=== PATIENT | female | born 1990 | race Caucasian/White ===

== ENCOUNTER 2017-03-08 14:20 | Emergency (ER) | payer OTHER ==
[2017-03-08 14:26] VITALS: TEMP 97.9
--- NOTE | 2017-03-08 15:26 | EDPHY ---
Addendum entered and electronically signed by Fabiola Leal PAC 03/08/17 16:14 : Patient's images reviewed by myself and discussed with radiologist Original Note: H & P Stated Complaint: Hit L side of head w/small window AC unity this am;+LOC Time Seen by Provider: 03/08/17 15:11 HPI/ROS: CHIEF COMPLAINT: acute head injury from a conditioner HISTORY OF PRESENT ILLNESS: 26-year-old female history of multiple sclerosis, no anticoagulant use, arrives via private vehicle complaining of acute head injury after a window air conditioner unit fell impacting her on the left parietal region with positive loss of consciousness . Incident occurred shortly prior to arrival. Her partner knows that she is answering questions more slowly than usual. She is complaining of headache. She is complaining of nausea. She denies midline C-spine pain. Denies intoxicants use. Denies peripheral paresthesia, weakness, numbness. REVIEW OF SYSTEMS: A ten point review of systems was performed and is negative with the exception of the items mentioned in the HPI PAST MEDICAL/SURGICAL HISTORY: no anticoagulant use, multiple sclerosis history SOCIAL HISTORY: denies alcohol use at time of incident PHYSICAL EXAM 1) GENERAL: Well-developed, well-nourished, alert and oriented. Appears to be in no acute distress. Answering questions appropriately. 2) HEAD: Normocephalic, left parietal hematoma, tenderness noted on exam. 3) HEENT: Pupils equal, round, reactive to light bilaterally. Negative Horners. Nasopharynx, oropharynx, clear. No deformity or angulation of nose. No septal hematoma. No rhinorrhea. No oral trauma. Ears bilaterally with normal tympanic membranes. No hemotympanum. No fluid or blood in the external auditory canal. No raccoon eyes. No Wu sign. Teeth are normally aligned with no gross malocclusion, TMJ bilaterally nontender, facial bones nontender including the zygomatic arch, maxilla mandible. 4) NECK: No cervical collar is on. Posterior cervical spine is nontender, no stepoff, no effusion. Full range of motion which does not elicit any midline cervical spine pain, no posterior midline tenderness, no step-off. 5) LUNGS: Clear to auscultation bilaterally, no wheezes, no rhonchi, no retractions. No obvious signs of trauma. No chest wall pain. No flaring, no grunting. Moving symmetrically. No crepitus. 6) HEART: Regular rate and rhythm, 7) ABDOMEN: No guarding, no rebound, no focal tenderness, no peritoneal signs, no signs of trauma, no ecchymosis 8) MUSCULOSKELETAL: Moving all extremities, no focal areas of tenderness, no obvious trauma. 9) BACK: No midline vertebral tenderness, no fluctuance, no step-off, no obvious trauma, no visual or palpable abnormality. 10) SKIN: [ No laceration. No abrasion DIFFERENTIAL DIAGNOSIS: [Not necessarily in any particular order, my differential diagnosis includes, but is not limited to, concussion, skull fracture, intraparenchymal contusion, subarachnoid, subdural and epidural hematoma. The patient understands that this diagnosis is provisional and can never be 100% accurate. - Personal History LMP (Females 10-55): Extended Cycle BCP/Inj Current Tetanus Diphtheria and Acellular Pertussis (TDAP): Yes Tetanus Vaccine Date: 2010 - Medical/Surgical History Hx Asthma: No Hx Chronic Respiratory Disease: No Hx Diabetes: No Hx Cardiac Disease: No Hx Renal Disease: No Hx Cirrhosis: No Hx Alcoholism: No Hx HIV/AIDS: No Hx Splenectomy or Spleen Trauma: No Other PMH: HX: BREAST CA, MENINGITIS, ANXIETY, L SHOULDER SURGERY, BRACHIAL BYPASS SURGERY LEFT ARM, LEFT ARM FX AND SURGERY, MS, TBI - Social History Smoking Status: Former smoker Constitutional: Initial Vital Signs Temperature (C) 36.6 C 03/08/17 14:20 Heart Rate 66 03/08/17 14:20 Respiratory Rate 18 03/08/17 14:20 Blood Pressure 135/89 H 03/08/17 14:20 O2 Sat (%) 98 03/08/17 14:20 Allergies/Adverse Reactions: codeine Allergy (Severe, Verified 03/08/17 14:22) Hives hydrocodone Allergy (Severe, Verified 03/08/17 14:22) Hives Sulfa (Sulfonamide Antibiotics) Allergy (Severe, Verified 03/08/17 14:22) Anaphylaxis vancomycin Allergy (Severe, Verified 03/08/17 14:22) Anaphylaxis Home Medications: Medication Instructions Recorded Gabapentin [Neurontin 300 MG (*)] 300 mg PO TID #90 cap 07/14/15 Medical Decision Making ED Course/Re-evaluation: 3:[address] ordered in this patient for trauma for the following indication: severe headache, loss of consciousness and visible head trauma, loss of consciousness and headache. 4:12 p.m. I discussed with the patient her negative CT. She is answering questions appropriately. No memory loss. Nonfocal neurologic exam. Plan will be discharge home with usual and customary head injury precautions and instructions including 2nd impact syndrome. Departure - Departure Disposition: Home, Routine, Self-Care Clinical Impression: Head injury due to trauma Qualifiers: Encounter type: initial encounter Qualified Code(s): S09.90XA - Unspecified injury of head, initial encounter Condition: Good Instructions: Head Injury (ED) Additional Instructions: ALTHOUGH THERE IS NO EVIDENCE OF SERIOUS HEAD INJURY AT THIS TIME, DELAYED SIGNS CAN APPEAR 24 TO 48 HOURS AFTER INJURY. WE RECOMMEND THAT YOU DESIGNATE A FRIEND OR FAMILY MEMBER TO OBSERVE YOU OVER THE NEXT FEW DAYS TO ENSURE THAT YOUR CONDITION IS PROGRESSING NORMALLY. PLEASE RETURN TO THE EMERGENCY DEPARTMENT (ED) IMMEDIATELY IF YOU HAVE INCREASED HEADACHE, PERSISTENT HEADACHE , VOMITING, WEAKNESS, CONFUSION OR VISUAL PROBLEMS. WE RECOMMEND THAT YOU DO NOT RESUME CONTACT SPORTS OR ACTIVITIES THAT TAKE COORDINATION OR BALANCE SUCH SKIING OR RIDING A BICYCLE UNTIL CLEARED TO DO SO BY YOUR DOCTOR OR BY A NEUROLOGIST. Referrals: Heather Reyes MD [Medical Doctor] - 2-3 days, call for appt.
[2017-03-08 16:24] VITALS: BP 114/68; PULSE 75; RESP 16; O2SAT 96
== END 2017-03-08 16:23 | disposition home or self-care (01) ==
DX: S09.90XA Unspecified injury of head, initial encounter (principal); Z85.3 Personal history of malignant neoplasm of breast; Z87.891 Personal history of nicotine dependence; W20.8XXA Other cause of strike by thrown, projected or falling object, initial encounter

== ENCOUNTER 2017-10-18 13:57 | Emergency (ER) | payer OTHER ==
[2017-10-18 14:09] VITALS: TEMP 98.2
[2017-10-18] MEDS ORDERED: NS 1,000 ML IV ONE (14:52)
[2017-10-18] MEDS ORDERED: ONDANSETRON 4 MG/2 ML VIAL IVP ONE ×3 (14:53→19:38)
--- NOTE | 2017-10-18 14:56 | EDPHY ---
H & P Stated Complaint: started 5 days ago, increasing malase and sob for 2 days, and MS Time Seen by Provider: 10/18/17 14:44 HPI/ROS: CHIEF COMPLAINT: Sore throat, fever, runny nose and body aches HISTORY OF PRESENT ILLNESS: Patient is a 27-year-old female with a history of MS as well as meningitis twice and is currently 7 weeks by ultrasound who comes to the emergency department complaining of sore throat, runny nose, fevers and body aches for 5 days. The she states that her partner was sick the week before she got sick. Today she has vomited twice. She has been nauseous and had morning sickness but feels worse today. she was concerned because of her history of meningitis. No rash. REVIEW OF SYSTEMS: Constitutional: See HPI EENTM: See HPI Respiratory: denies: cough, shortness of breath Cardiac: denies: chest pain, irregular heart rate, lightheadedness, palpitations Gastrointestinal/Abdominal: denies: abdominal pain, diarrhea, nausea, vomiting, blood streaked stools Genitourinary: denies: dysuria, frequency, hematuria, pain Musculoskeletal: See HPI Skin: denies: lesions, rash, jaundice, bruising Neurological: denies: headache, numbness, paresthesia, tingling, dizziness, weakness Hematologic/Lymphatic: denies: blood clots, easy bleeding, easy bruising Immunologic/allergic: denies: HIV/AIDS, transplant EXAM: GENERAL: Well-appearing, well-nourished and in no acute distress. HEAD: Atraumatic, normocephalic. EYES: Pupils equal round and reactive to light, extraocular movements intact, sclera anicteric, conjunctiva are normal. ENT: TMs normal, nares patent, oropharynx clear without exudates. Moist mucous membranes. NECK: Normal range of motion, supple without lymphadenopathy or JVD. LUNGS: Breath sounds clear to auscultation bilaterally and equal. No wheezes rales or rhonchi. HEART: Regular rate and rhythm without murmurs, rubs or gallops. ABDOMEN: Soft, nontender, normoactive bowel sounds. No guarding, no rebound. No masses appreciated. BACK: No CVA tenderness, no spinal tenderness, step-offs or deformities EXTREMITIES: Normal range of motion, no pitting or edema. No clubbing or cyanosis. NEUROLOGICAL: Cranial nerves II through XII grossly intact. Normal speech, normal gait. 5/5 strength, normal movement in all extremities, normal sensation PSYCH: Normal mood, normal affect. SKIN: Warm, dry, normal turgor, no visible rashes or lesions. Source: Patient Exam Limitations: No limitations - Personal History LMP (Females 10-55): Current Tetanus/Diphtheria Vaccine: Yes Current Tetanus Diphtheria and Acellular Pertussis (TDAP): Yes Tetanus Vaccine Date: 2010 - Medical/Surgical History Hx Asthma: No Hx Chronic Respiratory Disease: No Hx Diabetes: No Hx Cardiac Disease: No Hx Renal Disease: No Hx Cirrhosis: No Hx Alcoholism: No Hx HIV/AIDS: No Hx Splenectomy or Spleen Trauma: No Other PMH: HX: BREAST CA, MENINGITIS, ANXIETY, L SHOULDER SURGERY, BRACHIAL BYPASS SURGERY LEFT ARM, LEFT ARM FX AND SURGERY, MS, TBI - Family History Significant Family History: No pertinent family hx - Social History Smoking Status: Former smoker Alcohol Use: Sober Drug Use: None Constitutional: Initial Vital Signs Temperature (C) 36.8 C 10/18/17 14:06 Heart Rate 88 10/18/17 14:06 Respiratory Rate 16 10/18/17 14:06 Blood Pressure 100/83 H 10/18/17 14:06 O2 Sat (%) 98 10/18/17 14:06 O2 Delivery Mode Room Air Allergies/Adverse Reactions: codeine Allergy (Severe, Verified 03/08/17 14:22) Hives hydrocodone Allergy (Severe, Verified 03/08/17 14:22) Hives Sulfa (Sulfonamide Antibiotics) Allergy (Severe, Verified 03/08/17 14:22) Anaphylaxis vancomycin Allergy (Severe, Verified 03/08/17 14:22) Anaphylaxis Home Medications: Medication Instructions Recorded Gabapentin [Neurontin 300 MG (*)] 300 mg PO TID #90 cap 07/14/15 Ondansetron Odt [Zofran Odt 4 mg 4 mg PO Q4 PRN #20 tab 10/18/17 (RX)] Medical Decision Making - Diagnostics Imaging Results: Imaging Impressions Obstetrics Ultrasound 10/18/17 17:22 Impression: 1. Single living intrauterine gestation with EGA 8 weeks and 3 days. Estimated date of delivery is May 26, 2018. 2. Small subchorionic hemorrhage. 3. Recommend follow up anatomy scan at 20 weeks. Findings discussed with Emergency Department physician, Liborio Shukla on 2017, 19:16. Imaging: Discussed imaging studies w/ yardage caller Radiologist Procedures: Procedure: Lumbar puncture. Indication: Fever, back pain After verbal informed consent from patient explaining the risks including infection, bleeding, and neurologic damage, a lumbar puncture was performed after the patient was prepped and draped in the usual fashion. Procedures done with a Putnam blunt-tipped needle. The back was anesthetized with 1% lidocaine. Approximately 4 cc of clear fluid was obtained. Opening pressure was not obtained. There were no complications. The procedure was performed by myself. ED Course/Re-evaluation: Have returned to her room multiple times. The patient is feeling better. She tolerated the lumbar puncture well. She is reassured with the ultrasound although sounds as though she plans to have a medical . A suspect that she has a viral infection at this time and we discussed indications for returning as well as follow-up. The patient and her significant other feel happy with this plan. She is asking for prescription for Zofran. Differential Diagnosis: Partial list of the Differential diagnosis considered include but were not limited to; influenza, viral syndrome, meningitis, strep throat and although unlikely based on the history and physical exam, I also considered the uterine hemorrhage, urinary tract infection, sepsis, rupture. I discussed these differential diagnoses and the plan with the patient as well as the usual and expected course. The patient understands that the diagnosis is provisional and that in medicine we are not always correct and that further workup is often warranted. Usual and customary warnings were given. All of the patient's questions were answered. The patient was instructed to return to the emergency department should the symptoms at all worsen or return, otherwise to followup with the physician as we discussed. - Data Points Laboratory Results: Laboratory Results 10/18/17 15:10 10/18/17 15:10 10/18/17 10/18/17 10/18/17 Unknown 17:15 16:17 WBC RBC Hgb Hct MCV MCH MCHC RDW Plt Count MPV Neut % (Auto) Lymph % (Auto) Colbert % (Auto) Eos % (Auto) Baso % (Auto) Nucleat RBC Rel Count Absolute Neuts (auto) Absolute Lymphs (auto) Absolute Monos (auto) Absolute Eos (auto) Absolute Basos (auto) Absolute Nucleated RBC Immature Gran % Immature Gran # Sodium Potassium Chloride Carbon Dioxide Anion Gap BUN Creatinine Estimated GFR Glucose Calcium Urine Color Urine Appearance Urine pH Ur Specific [place] Urine Protein Urine Ketones Urine Blood Urine Nitrate Urine Bilirubin Urine Urobilinogen Ur Leukocyte Esterase Urine RBC Urine WBC Ur Epithelial Cells Urine Bacteria Urine Mucus Urine Glucose CSF Tube Number 4 CSF Appearance CLEAR (CLEAR) CSF Color COLORLESS (COLORLESS) CSF Supernatant COLORLESS (COLORLESS) CSF WBC 0 /mm3 /mm3 (0-5) CSF RBC 5 /mm3 H /mm3 (0-0) CSF Glucose 46 mg/dL L mg/dL (50-75) CSF Total Protein 27 mg/dL mg/dL (12-60) Nasal Influenza A PCR Nasal Influenza B PCR Group A Strep Screen NEGATIVE (NEGATIVE) Group A Strep DNA Pending 10/18/17 10/18/17 10/18/17 16:17 15:10 15:10 WBC 10.51 10^3/uL H 10^3/uL (3.80-9.50) RBC 4.42 10^6/uL 10^6/uL (4.18-5.33) Hgb 14.0 g/dL g/dL (12.6-16.3) Hct 40.1 % % (38.0-47.0) MCV 90.7 fL fL (81.5-99.8) MCH 31.7 pg pg (27.9-34.1) MCHC 34.9 g/dL g/dL (32.4-36.7) RDW 11.9 % % (11.5-15.2) Plt Count 303 10^3/uL 10^3/uL (150-400) MPV 9.3 fL fL (8.7-11.7) Neut % (Auto) 79.0 % H % (39.3-74.2) Lymph % (Auto) 11.8 % L % (15.0-45.0) Colbert % (Auto) 6.4 % % (4.5-13.0) Eos % (Auto) 2.1 % % (0.6-7.6) Baso % (Auto) 0.3 % % (0.3-1.7) Nucleat RBC Rel Count 0.0 % % (0.0-0.2) Absolute Neuts (auto) 8.31 10^3/uL H 10^3/uL (1.70-6.50) Absolute Lymphs (auto) 1.24 10^3/uL 10^3/uL (1.00-3.00) Absolute Monos (auto) 0.67 10^3/uL 10^3/uL (0.30-0.80) Absolute Eos (auto) 0.22 10^3/uL 10^3/uL (0.03-0.40) Absolute Basos (auto) 0.03 10^3/uL 10^3/uL (0.02-0.10) Absolute Nucleated RBC 0.00 10^3/uL 10^3/uL (0-0.01) Immature Gran % 0.4 % % (0.0-1.1) Immature Gran # 0.04 10^3/uL 10^3/uL (0.00-0.10) Sodium 136 mEq/L mEq/L (135-145) Potassium 4.1 mEq/L mEq/L (3.5-5.2) Chloride 108 mEq/L mEq/L (97-110) Carbon Dioxide 16 mEq/l L mEq/l (22-31) Anion Gap 12 mEq/L mEq/L (8-16) BUN 5 mg/dL L mg/dL (7-23) Creatinine 0.5 mg/dL L mg/dL (0.6-1.0) Estimated GFR > 60 Glucose 81 mg/dL mg/dL (70-100) Calcium 9.4 mg/dL mg/dL (8.5-10.4) Urine Color PALE YELLOW Urine Appearance CLEAR Urine pH 7.0 (5.0-7.5) Ur Specific [place] 1.004 (1.002-1.030) Urine Protein NEGATIVE (NEGATIVE) Urine Ketones NEGATIVE (NEGATIVE) Urine Blood NEGATIVE (NEGATIVE) Urine Nitrate NEGATIVE (NEGATIVE) Urine Bilirubin NEGATIVE (NEGATIVE) Urine Urobilinogen NEGATIVE EU EU (0.2-1.0) Ur Leukocyte Esterase NEGATIVE (NEGATIVE) Urine RBC 1-3 /hpf /hpf (0-3) Urine WBC 1-3 /hpf /hpf (0-3) Ur Epithelial Cells 1+ /lpf /lpf (NONE-1+) Urine Bacteria TRACE /hpf H /hpf (NONE SEEN) Urine Mucus TRACE /lpf /lpf (NONE-1+) Urine Glucose NEGATIVE (NEGATIVE) CSF Tube Number CSF Appearance CSF Color CSF Supernatant CSF WBC CSF RBC CSF Glucose CSF Total Protein Nasal Influenza A PCR Nasal Influenza B PCR Group A Strep Screen Group A Strep DNA 10/18/17 15:00 WBC RBC Hgb Hct MCV MCH MCHC RDW Plt Count MPV Neut % (Auto) Lymph % (Auto) Colbert % (Auto) Eos % (Auto) Baso % (Auto) Nucleat RBC Rel Count Absolute Neuts (auto) Absolute Lymphs (auto) Absolute Monos (auto) Absolute Eos (auto) Absolute Basos (auto) Absolute Nucleated RBC Immature Gran % Immature Gran # Sodium Potassium Chloride Carbon Dioxide Anion Gap BUN Creatinine Estimated GFR Glucose Calcium Urine Color Urine Appearance Urine pH Ur Specific [place] Urine Protein Urine Ketones Urine Blood Urine Nitrate Urine Bilirubin Urine Urobilinogen Ur Leukocyte Esterase Urine RBC Urine WBC Ur Epithelial Cells Urine Bacteria Urine Mucus Urine Glucose CSF Tube Number CSF Appearance CSF Color CSF Supernatant CSF WBC CSF RBC CSF Glucose CSF Total Protein Nasal Influenza A PCR NEGATIVE FOR FLU A (NEGATIVE) Nasal Influenza B PCR NEGATIVE FOR FLU B (NEGATIVE) Group A Strep Screen Cancelled Group A Strep DNA Microbiology Results: MICROBIOLOGY 10/18/17 17:15 Cerebral Spinal Fluid Gram Stain - Final Medications Given: Discontinued Medications Acetaminophen (Tylenol) 1,000 mg PO EDNOW ONE Stop: 10/18/17 16:54 Last Admin: 10/18/17 16:56 Dose: 1,000 mg Hydromorphone HCl (Dilaudid) 1 mg IVP EDNOW ONE Stop: 10/18/17 18:15 Last Admin: 10/18/17 18:20 Dose: 1 mg Sodium Chloride (Ns) 1,000 mls @ 0 mls/hr IV ONCE ONE; Wide Open PRN Reason: Protocol Stop: 10/18/17 14:53 Last Admin: 10/18/17 15:15 Dose: 1,000 mls Ondansetron HCl (Zofran) 4 mg IVP EDNOW ONE Stop: 10/18/17 14:54 Last Admin: 10/18/17 15:15 Dose: 4 mg Ondansetron HCl (Zofran) 4 mg IVP EDNOW ONE Stop: 10/18/17 16:09 Last Admin: 10/18/17 16:15 Dose: 4 mg Ondansetron HCl (Zofran) 4 mg IVP EDNOW ONE Stop: 10/18/17 19:39 Last Admin: 10/18/17 19:45 Dose: Not Given Ondansetron HCl (Zofran Odt 4 Mg Prepack#2) 1 btl TAKEHOME EDNOW ONE Stop: 10/18/17 19:39 Last Admin: 10/18/17 19:46 Dose: 1 btl Ondansetron HCl (Zofran Odt) 4 mg PO EDNOW ONE Stop: 10/18/17 19:41 Last Admin: 10/18/17 19:46 Dose: 4 mg Departure - Departure Disposition: Home, Routine, Self-Care Clinical Impression: Acute viral syndrome Condition: Fair Instructions: Ondansetron (By mouth), Viral Syndrome (ED) Referrals: NONE *PRIMARY CARE P,. [Primary Care Provider] - As per Instructions Prescriptions: Ondansetron Odt [Zofran Odt 4 mg (RX)] 4 mg PO Q4 PRN #20 tab PRN Reason: Nausea & Vomiting
[2017-10-18 15:18] LABS: PLATELET COUNT 303 10^3/uL (150-400)
[2017-10-18] MEDS ORDERED: ACETAMINOPHEN 500 MG TAB PO ONE (16:53)
[2017-10-18] MEDS ORDERED: HYDROmorphONE/DILAUDID 2 MG/ML INJ IVP ONE (18:14)
[2017-10-18] MEDS ORDERED: HYDROmorphONE/DILAUDID 2 MG/ML INJ ONE (18:18)
[2017-10-18] MEDS ORDERED: ONDANSETRON 4MG PREPACK#2 BTL TAKEHOME ONE (19:38)
[2017-10-18] MEDS ORDERED: ONDANSETRON DISINTEGRATING 4 MG TAB PO ONE (19:40)
[2017-10-18 19:48] VITALS: BP 93/55; PULSE 65; RESP 18; O2SAT 97
== END 2017-10-18 19:56 | disposition home or self-care (01) ==
PROC: 009U3ZX Drainage of Spinal Canal, Percutaneous Approach, Diagnostic (ICD-10-PCS; principal; 2017-10-18)
DX: O98.511 Other viral diseases complicating pregnancy, first trimester (principal); B34.9 Viral infection, unspecified; E86.9 Volume depletion, unspecified; Z3A.01 Less than 8 weeks gestation of pregnancy; Z85.3 Personal history of malignant neoplasm of breast; Z87.891 Personal history of nicotine dependence
CPT/HCPCS: 96374; J1170; J2405

== ENCOUNTER 2017-11-12 10:20 | Emergency (ER) | payer OTHER ==
[2017-11-12] MEDS ORDERED: NS 1,000 ML IV ONE (10:43)
--- NOTE | 2017-11-12 10:43 | EDPHY ---
H & P Stated Complaint: TAb 3/15 w/ oral meds;bleeding/cramping more today Time Seen by Provider: 11/12/17 10:42 HPI/ROS: HPI: This is a 27-year-old female who presents with Chief Complaint: TAb 3/15 w/ oral medications;bleeding/cramping more today Location:pelvic Quality: Bleeding Duration: 1 hr prior to arrival Signs and Symptoms: no fever, no nausea, no vomiting, no hematemesis, no blood in stool, no abdominal bloating, no diarrhea, no back pain, + burning with urination, no vaginal discharge, no indigestion, no chest pain, no shortness of breath Timing: Acute Severity: Moderate to severe Context: [facility] and given a medication sounds like Misoprostol take as she was 8 weeks . She had an elective chemical . Within 5 hr of taking the said medication, patient reports that she started to have pelvic cramping and passed products of conception. She reports within a couple hours of passing the products of conception her vaginal cramping and discomfort subsided. This morning, she woke up and had lower abdominal and pelvic cramping with sudden onset of vaginal bleeding. She was passing large amounts of clots and went through 4 pads within 30 min. [facility] to the emergency room immediately for further evaluation. This is her 2nd elective . She also reports burning with urination for the last 2-3 days. Reports blood type is negative; [facility]. Per patient, last sexual intercourse was approximately 1 week ago. Modifying Factors: None Comment: ROS: see HPI Constitutional: No fever, no chills, no weight loss Eyes: No blurred vision Respiratory: No shortness of breath, no cough Cardiovascular: No chest pain, no palpitations Gastrointestinal: No nausea, no vomiting, no diarrhea, no hematemesis, no blood in stool Genitourinary: No dysuria, no blood in urine Extremities: No myalgias, no edema Neurologic: No weakness, no numbness Skin: No rashes, no petechiae Hematologic: No bruising, no bleeding MEDICAL/SURGICAL/SOCIAL HISTORY: Medical/Surgical history: HX: BREAST CA, MENINGITIS, ANXIETY, L SHOULDER SURGERY, BRACHIAL BYPASS SURGERY LEFT ARM, LEFT ARM FX AND SURGERY, MS, TBI, laceration cervix w/IUD removal Social history: Employed. CONSTITUTIONAL: Well-developed well-nourished nontoxic-appearing young adult female, awake and alert, no obvious distress HEENT: Atraumatic and normocephalic, PERRL, EOMI. Tympanic membranes clear. Oropharynx clear, no exudate and moist pink mucosa. Airway patent. No lymphadenopathy. No meningismus. Cardiovascular: Normal S1/S2, mild tachycardia, regular rhythm, without murmur rub or gallop. PULMONARY/CHEST: Symmetrical and nontender. Clear to auscultation bilaterally. Good air movement. No accessory muscle usage. ABDOMEN: Soft, nondistended, nontender, no rebound, no guarding, no peritoneal signs, no masses or organomegaly. No CVAT. PELVIC: normal external genitalia, normal cervix, cervical os 1 finger with open ; large bright red clot passing through cervical opening;, no cervical motion tenderness, no adnexal mass, no discharge, bright red clots noted in vaginal canal. The exam was performed with a back padder. EXTREMITIES: 2/2 pulses, strength 5/5, no deformities, no clubbing, no cyanosis or edema. NEUROLOGICAL: no focal neuro deficits. GCS 15. SKIN: Warm and dry, multiple tattoos noted, no erythema. no rash. Good capillary refill. Source: Patient Exam Limitations: No limitations - Personal History Current Tetanus Diphtheria and Acellular Pertussis (TDAP): Yes Tetanus Vaccine Date: 2010 - Medical/Surgical History Hx Asthma: No Hx Chronic Respiratory Disease: No Hx Diabetes: No Hx Cardiac Disease: No Hx Renal Disease: No Hx Cirrhosis: No Hx Alcoholism: No Hx HIV/AIDS: No Hx Splenectomy or Spleen Trauma: No Other PMH: HX: BREAST CA, MENINGITIS, ANXIETY, L SHOULDER SURGERY, BRACHIAL BYPASS SURGERY LEFT ARM, LEFT ARM FX AND SURGERY, MS, TBI,lac cervix w/IUD removal - Social History Smoking Status: Former smoker Constitutional: Initial Vital Signs Temperature (C) 36.6 C 11/12/17 10:25 Heart Rate 116 H 11/12/17 10:25 Respiratory Rate 18 11/12/17 10:25 Blood Pressure 144/93 H 11/12/17 10:25 O2 Sat (%) 96 11/12/17 10:25 O2 Delivery Mode Room Air O2 (L/minute) 2 Allergies/Adverse Reactions: codeine Allergy (Severe, Verified 11/12/17 10:29) Hives hydrocodone Allergy (Severe, Verified 11/12/17 10:29) Hives Sulfa (Sulfonamide Antibiotics) Allergy (Severe, Verified 11/12/17 10:29) Anaphylaxis vancomycin Allergy (Severe, Verified 11/12/17 10:29) Anaphylaxis Home Medications: Medication Instructions Recorded NK [No Known Home Meds] 11/12/17 Medical Decision Making - Diagnostics Imaging Results: Imaging Impressions Pelvic/Renal Ultrasound 11/12/17 10:44 Impression: 1. Thickening of the endometrium with intracavitary mobile blood product. 2. No endometrial color Doppler flow to suggest retained products of conception. 3. No free fluid ED Course/Re-evaluation: Urinalysis, labs, IV fluids, IV medications, pelvic ultrasound ordered Given 1 L normal saline, IV morphine Patient is actively bleeding but vital signs are stable. Mild tachycardia noted. 1140: Labs reviewed and show stable H&H blood type: B negative Urinalysis shows blood but no signs of infection. Ultrasound shows no retained products of conception; no free fluid; no ovarian torsion; no uterine rupture; + blood products noted within the cavity 1400: Repeat H&H 12.2/36.1 ED decision to consult OBGYN, Dr. Byrd who advises that he x-ray is not required for this patient at this time. He will see the patient for follow-up early next week. Advised supportive care. This patient was seen under the supervision of my secondary supervising physician. I evaluated care for this patient independently. Differential Diagnosis: Vaginal bleeding including but not limited to ectopic , menses, miscarriage, and dysfunctional uterine bleeding. - Data Points Laboratory Results: Laboratory Results 11/12/17 14:18 11/12/17 11:10 11/12/17 11/12/17 11/12/17 14:18 13:10 12:05 WBC RBC Hgb 12.2 g/dL L g/dL (12.6-16.3) Hct 36.1 % L % (38.0-47.0) MCV MCH MCHC RDW Plt Count MPV Neut % (Auto) Lymph % (Auto) [place] % (Auto) Eos % (Auto) Baso % (Auto) Nucleat RBC Rel Count Absolute Neuts (auto) Absolute Lymphs (auto) Absolute Monos (auto) Absolute Eos (auto) Absolute Basos (auto) Absolute Nucleated RBC Immature Gran % Immature Gran # Sodium Potassium Chloride Carbon Dioxide Anion Gap BUN Creatinine Estimated GFR Glucose Calcium Urine Color YELLOW REJ Urine Appearance HAZY TNP Urine pH 5.0 TNP (5.0-7.5) Ur Specific [place] 1.034 H TNP (1.002-1.030) Urine Protein 1+ H TNP (NEGATIVE) Urine Ketones 1+ H TNP (NEGATIVE) Urine Blood 3+ H TNP (NEGATIVE) Urine Nitrate NEGATIVE TNP (NEGATIVE) Urine Bilirubin NEGATIVE TNP (NEGATIVE) Urine Urobilinogen NEGATIVE EU EU TNP (0.2-1.0) Ur Leukocyte Esterase NEGATIVE TNP (NEGATIVE) Urine RBC 50-182 /hpf H /hpf (0-3) Urine WBC 3-5 /hpf H /hpf (0-3) Ur Epithelial Cells TRACE /lpf /lpf (NONE-1+) Urine Mucus 2+ /lpf H /lpf (NONE-1+) Urine Glucose NEGATIVE TNP (NEGATIVE) Patient ABO/Rh Antibody Screen Antibody Identification 11/12/17 11/12/17 11/12/17 11:10 11:10 11:10 WBC 8.58 10^3/uL 10^3/uL (3.80-9.50) RBC 4.39 10^6/uL 10^6/uL (4.18-5.33) Hgb 13.9 g/dL g/dL (12.6-16.3) Hct 40.4 % % (38.0-47.0) MCV 92.0 fL fL (81.5-99.8) MCH 31.7 pg pg (27.9-34.1) MCHC 34.4 g/dL g/dL (32.4-36.7) RDW 12.6 % % (11.5-15.2) Plt Count 325 10^3/uL 10^3/uL (150-400) MPV 9.4 fL fL (8.7-11.7) Neut % (Auto) 62.3 % % (39.3-74.2) Lymph % (Auto) 27.7 % % (15.0-45.0) [place] % (Auto) 6.6 % % (4.5-13.0) Eos % (Auto) 2.3 % % (0.6-7.6) Baso % (Auto) 0.9 % % (0.3-1.7) Nucleat RBC Rel Count 0.0 % % (0.0-0.2) Absolute Neuts (auto) 5.33 10^3/uL 10^3/uL (1.70-6.50) Absolute Lymphs (auto) 2.38 10^3/uL 10^3/uL (1.00-3.00) Absolute Monos (auto) 0.57 10^3/uL 10^3/uL (0.30-0.80) Absolute Eos (auto) 0.20 10^3/uL 10^3/uL (0.03-0.40) Absolute Basos (auto) 0.08 10^3/uL 10^3/uL (0.02-0.10) Absolute Nucleated RBC 0.00 10^3/uL 10^3/uL (0-0.01) Immature Gran % 0.2 % % (0.0-1.1) Immature Gran # 0.02 10^3/uL 10^3/uL (0.00-0.10) Sodium 140 mEq/L mEq/L (135-145) Potassium 4.5 mEq/L mEq/L (3.5-5.2) Chloride 107 mEq/L mEq/L (97-110) Carbon Dioxide 18 mEq/l L mEq/l (22-31) Anion Gap 15 mEq/L mEq/L (8-16) BUN 11 mg/dL mg/dL (7-23) Creatinine 0.6 mg/dL mg/dL (0.6-1.0) Estimated GFR > 60 Glucose 81 mg/dL mg/dL (70-100) Calcium 9.1 mg/dL mg/dL (8.5-10.4) Urine Color Urine Appearance Urine pH Ur Specific [place] Urine Protein Urine Ketones Urine Blood Urine Nitrate Urine Bilirubin Urine Urobilinogen Ur Leukocyte Esterase Urine RBC Urine WBC Ur Epithelial Cells Urine Mucus Urine Glucose Patient ABO/Rh B NEGATIVE Antibody Screen POSITIVE Antibody Identification SIG ANTIBODIES RULED OUT Medications Given: Discontinued Medications Sodium Chloride (Ns) 1,000 mls @ 0 mls/hr IV ONCE ONE; Wide Open PRN Reason: Protocol Stop: 11/12/17 10:44 Last Admin: 11/12/17 11:28 Dose: 1,000 mls Morphine Sulfate (Morphine) 4 mg IVP EDNOW ONE Stop: 11/12/17 10:45 Last Admin: 11/12/17 11:29 Dose: 4 mg Departure - Departure Disposition: Home, Routine, Self-Care Clinical Impression: Episode of heavy vaginal bleeding, Status post elective Condition: Good Instructions: Bleeding (ED), Pelvic Rest (ED) Additional Instructions: Please call Dr. Byrd's office on Wednesday for follow-up appointment next week. Consume a minimum of 8-10 glasses of water or electrolyte fluid replacement drinks that include Gatorade, Powerade, Pedialyte. Eat a bland diet for the next 48 hours and then slowly advance as tolerated. Return to the emergency room if you bleed through 1 pad in 1 hr x 4 hours. Referrals: Arias Byrd MD [Medical Doctor] - As per Instructions
[2017-11-12 11:19] LABS: PLATELET COUNT 325 10^3/uL (150-400)
[2017-11-12 12:09] VITALS: TEMP 98.1
[2017-11-12 14:40] VITALS: BP 107/63; PULSE 70; RESP 18; O2SAT 97
== END 2017-11-12 14:41 | disposition home or self-care (01) ==
DX: N93.9 Abnormal uterine and vaginal bleeding, unspecified (principal); E86.9 Volume depletion, unspecified; Z33.2 Encounter for elective termination of pregnancy; Z85.3 Personal history of malignant neoplasm of breast; Z87.891 Personal history of nicotine dependence
CPT/HCPCS: 96374; J2270

== ENCOUNTER 2018-06-19 06:59 | Emergency (ER) | payer OTHER ==
[2018-06-19] MEDS ORDERED: ACETAMINOPHEN 325 MG TAB PO ONE (08:04)
[2018-06-19] MEDS ORDERED: NS 1,000 ML IV ONE (08:05)
--- NOTE | 2018-06-19 08:09 | EDPHY ---
H & P Stated Complaint: "Sick" x 3 wks;cough, fatigue, sore throat, numerous c/o Time Seen by Provider: 06/19/18 07:53 HPI/ROS: CHIEF COMPLAINT: Fever, myalgias HISTORY OF PRESENT ILLNESS: 27-year-old female with multiple sclerosis presents with fever and myalgias. Onset of myalgias 10 days ago, associated with a mild cough. Fever started 3 days ago, associated with increasing myalgias, moderate sore throat and increasing cough. Also feels weaker than usual, able to walk with a steady gait. Intermittent headaches, similar to migraine headaches. Urinary frequency started yesterday evening. History of meningitis x2; does not feel similar. REVIEW OF SYSTEMS: complete 10 point ROS reviewed and is negative except for the noted elements in the HPI - Personal History LMP (Females 10-55): 15-21 Days Ago Current Tetanus Diphtheria and Acellular Pertussis (TDAP): Yes Tetanus Vaccine Date: 2010 - Medical/Surgical History Hx Asthma: No Hx Chronic Respiratory Disease: No Hx Diabetes: No Hx Cardiac Disease: No Hx Renal Disease: No Hx Cirrhosis: No Hx Alcoholism: No Hx HIV/AIDS: No Hx Splenectomy or Spleen Trauma: No Other PMH: HX: BREAST CA, MENINGITIS, ANXIETY, L SHOULDER SURGERY, BRACHIAL BYPASS SURGERY LEFT ARM, LEFT ARM FX AND SURGERY, MS, TBI,lac cervix w/IUD removal - Social History Smoking Status: Never smoked Drug Use: None Additional Social History: Single - Physical Exam Exam: General Appearance: Alert, pleasant, nontoxic-appearing Eyes: Pupils equal and round, no conjunctival pallor or injection ENT, Mouth: Mucous membranes moist, slight pharyngeal erythema, no exudate Neck: Normal inspection, shoddy adenopathy Respiratory: Rhonchi at the left lung base Cardiovascular: Regular rate and rhythm Gastrointestinal: Abdomen is soft and nontender Neurological: A&O, nonfocal exam Skin: Warm and dry Extremities: Normal inspection Psychiatric: Mood and affect normal Constitutional: Initial Vital Signs Temperature (C) 38 C 06/19/18 07:05 Heart Rate 96 06/19/18 07:05 Respiratory Rate 18 06/19/18 07:05 Blood Pressure 137/84 H 06/19/18 07:05 O2 Sat (%) 99 06/19/18 07:05 O2 Delivery Mode Room Air Allergies/Adverse Reactions: codeine Allergy (Severe, Verified 06/19/18 07:04) Hives hydrocodone Allergy (Severe, Verified 06/19/18 07:04) Hives Sulfa (Sulfonamide Antibiotics) Allergy (Severe, Verified 06/19/18 07:04) Anaphylaxis vancomycin Allergy (Severe, Verified 06/19/18 07:04) Anaphylaxis Home Medications: Medication Instructions Recorded NK [No Known Home Meds] 11/12/17 Medical Decision Making - Diagnostics Imaging Results: Imaging Impressions Chest X-Ray 06/19/18 08:04 Impression: Clear lungs. No pneumonia or effusion. Imaging: I viewed and interpreted images myself ED Course/Re-evaluation: This patient presents with multiple symptoms, most consistent with viral syndrome. Main complaint is sore throat and fever. IV normal saline 1 L and Toradol 30 mg IV given. Discussed with patient the possibility of meningitis, patient does not feel that she has meningitis and declines LP. Fever workup initiated. 10:00 a.m.-results discussed with the patient. Feels better after IV fluids and Toradol. No evidence of influenza, urinary tract infection or pneumonia. Discussed with patient the possibility of recurrent meningitis. Patient states she has had 6-7 prior lumbar punctures and has required a blood patch in the past. She declines lumbar puncture. She is a competent decision maker and clearly understands the risks and benefits of this decision. Given her clinical presentation, if she has meningitis, likely viral etiology. Decadron 10 mg orally given for sore throat. She has some weakness, but is able to walk with a steady gait and declines admission to the hospital. Patient was advised to follow up with her neurologist at [facility]. She will return to the emergency department for worsening symptoms or any concerns. Differential Diagnosis: Differential diagnosis includes pyelonephritis, cholecystitis, influenza, cellulitis, pneumonia, abscess, meningitis. - Data Points Laboratory Results: Laboratory Results 06/19/18 08:35 06/19/18 08:35 06/19/18 06/19/18 06/19/18 Unknown 08:35 08:35 WBC 11.30 10^3/uL H 10^3/uL (3.80-9.50) RBC 4.36 10^6/uL 10^6/uL (4.18-5.33) Hgb 13.9 g/dL g/dL (12.6-16.3) Hct 40.6 % % (38.0-47.0) MCV 93.1 fL fL (81.5-99.8) MCH 31.9 pg pg (27.9-34.1) MCHC 34.2 g/dL g/dL (32.4-36.7) RDW 11.6 % % (11.5-15.2) Plt Count 259 10^3/uL 10^3/uL (150-400) MPV 10.0 fL fL (8.7-11.7) Neut % (Auto) 80.8 % H % (39.3-74.2) Lymph % (Auto) 11.1 % L % (15.0-45.0) [place] % (Auto) 7.3 % % (4.5-13.0) Eos % (Auto) 0.0 % L % (0.6-7.6) Baso % (Auto) 0.4 % % (0.3-1.7) Nucleat RBC Rel Count 0.0 % % (0.0-0.2) Absolute Neuts (auto) 9.13 10^3/uL H 10^3/uL (1.70-6.50) Absolute Lymphs (auto) 1.25 10^3/uL 10^3/uL (1.00-3.00) Absolute Monos (auto) 0.83 10^3/uL H 10^3/uL (0.30-0.80) Absolute Eos (auto) 0.00 10^3/uL L 10^3/uL (0.03-0.40) Absolute Basos (auto) 0.05 10^3/uL 10^3/uL (0.02-0.10) Absolute Nucleated RBC 0.00 10^3/uL 10^3/uL (0-0.01) Immature Gran % 0.4 % % (0.0-1.1) Immature Gran # 0.04 10^3/uL 10^3/uL (0.00-0.10) Sodium 137 mEq/L mEq/L (135-145) Potassium 4.1 mEq/L mEq/L (3.3-5.0) Chloride 103 mEq/L mEq/L (97-110) Carbon Dioxide 21 mEq/l L mEq/l (22-31) Anion Gap 13 mEq/L mEq/L (6-14) BUN 5 mg/dL L mg/dL (7-23) Creatinine 0.8 mg/dL mg/dL (0.6-1.0) Estimated GFR > 60 Glucose 75 mg/dL mg/dL (70-100) Calcium 9.8 mg/dL mg/dL (8.5-10.4) Urine Color Urine Appearance Urine pH Ur Specific [place] Urine Protein Urine Ketones Urine Blood Urine Nitrate Urine Bilirubin Urine Urobilinogen Ur Leukocyte Esterase Urine Glucose Nasal Influenza A PCR Nasal Influenza B PCR Monoscreen Group A Strep Screen Group A Strep DNA Pending 06/19/18 06/19/18 06/19/18 08:10 08:06 07:50 WBC RBC Hgb Hct MCV MCH MCHC RDW Plt Count MPV Neut % (Auto) Lymph % (Auto) [place] % (Auto) Eos % (Auto) Baso % (Auto) Nucleat RBC Rel Count Absolute Neuts (auto) Absolute Lymphs (auto) Absolute Monos (auto) Absolute Eos (auto) Absolute Basos (auto) Absolute Nucleated RBC Immature Gran % Immature Gran # Sodium Potassium Chloride Carbon Dioxide Anion Gap BUN Creatinine Estimated GFR Glucose Calcium Urine Color YELLOW Urine Appearance CLEAR Urine pH 7.0 (5.0-7.5) Ur Specific [place] 1.009 (1.002-1.030) Urine Protein NEGATIVE (NEGATIVE) Urine Ketones TRACE H (NEGATIVE) Urine Blood NEGATIVE (NEGATIVE) Urine Nitrate NEGATIVE (NEGATIVE) Urine Bilirubin NEGATIVE (NEGATIVE) Urine Urobilinogen NEGATIVE EU EU (0.2-1.0) Ur Leukocyte Esterase NEGATIVE (NEGATIVE) Urine Glucose NEGATIVE (NEGATIVE) Nasal Influenza A PCR NEGATIVE FOR FLU A (NEGATIVE) Nasal Influenza B PCR NEGATIVE FOR FLU B (NEGATIVE) Monoscreen Pending Group A Strep Screen NEGATIVE (NEGATIVE) Group A Strep DNA Medications Given: Discontinued Medications Acetaminophen (Tylenol) 650 mg PO EDNOW ONE Stop: 06/19/18 08:05 Last Admin: 06/19/18 08:13 Dose: 650 mg Sodium Chloride (Ns) 1,000 mls @ 0 mls/hr IV ONCE ONE; Wide Open PRN Reason: Protocol Stop: 06/19/18 08:06 Last Admin: 06/19/18 08:32 Dose: 1,000 mls Ketorolac Tromethamine (Toradol) 30 mg IVP EDNOW ONE Stop: 06/19/18 08:54 Last Admin: 06/19/18 09:07 Dose: 30 mg Departure - Departure Disposition: Home, Routine, Self-Care Clinical Impression: Viral syndrome, Multiple sclerosis Condition: Good Instructions: Viral Syndrome (ED) Additional Instructions: You received a liter of IV fluids, Toradol IV and Decadron orally in the ED today. Alternate ibuprofen and Tylenol every 3 hr for fever and pain control. Drink plenty of fluids. Return for worsening symptoms or any concerns. Call your neurologist to make an appointment. Referrals: Kristofer Virk MD [[facility] Primary Care Provider] - As per Instructions
[2018-06-19] MEDS ORDERED: KETOROLAC 15 MG/1 ML SDV IVP ONE (08:53)
[2018-06-19 09:05] LABS: PLATELET COUNT 259 10^3/uL (150-400)
[2018-06-19] MEDS ORDERED: DEXAMETHASONE 4 MG TAB PO ONE (10:19)
[2018-06-19 10:39] VITALS: BP 115/71
[2018-06-21] MEDS ORDERED: IOPAMIDOL (ISOVUE-300) 100 ML BTL ONE (20:08)
== END 2018-06-19 10:52 | disposition home or self-care (01) ==
DX: B34.9 Viral infection, unspecified (principal); G35 Multiple sclerosis; E86.9 Volume depletion, unspecified
CPT/HCPCS: 96374; J1885; Q9967

== ENCOUNTER 2018-06-21 19:36 | Emergency (ER) | payer OTHER ==
--- NOTE | 2018-06-21 19:56 | EDPHY ---
H & P Stated Complaint: SOB,SORE THROAT, PT HAS MS/HERE TWO DAYS AGO Time Seen by Provider: 06/21/18 19:56 HPI/ROS: HPI: This is a 27-year-old female who presents with Chief Complaint: SOB,SORE THROAT, PT HAS MS/HERE TWO DAYS AGO Location: Throat Quality: Sore Duration: Several days Signs and Symptoms: + subjective fever, no nausea, no vomiting, no diarrhea, no urinary symptoms, no chest pain, + shortness of breath, no wheezing, no cough, no sore throat, no neck stiffness, + joint pain, + swollen glands, no ear pain, no rash Timing: Worsening Severity: Moderate Context: Patient has a history of multiple sclerosis followed by neurologist [facility] presents with several day history of sore throat that is company by subjective fever, fatigue, chills, swollen glands and diffuse joint pain and body aches. She was seen in this emergency room on 05/19/2018 with a thorough workup that showed no white blood cell count, chest x-ray negative, urinalysis, flu, mono, strep negative. Patient reports that her glands continue to increase in size and she is having difficulty swallowing. She reports that she has not been able to sleep and is requesting medications to help her muscles and her body so that she can sleep." She reports that she is taking Advil with no relief of symptoms. Modifying Factors: See above Comment: ROS: A comprehensive 10 system review of systems is otherwise negative aside from elements mentioned in the history of present illness. MEDICAL/SURGICAL/SOCIAL HISTORY: Medical/surgical history: BREAST CA, MENINGITIS, ANXIETY, L SHOULDER SURGERY, BRACHIAL BYPASS SURGERY LEFT ARM, LEFT ARM FX AND SURGERY, MS, TBI,lac cervix w/ IUD removal, APPY, MJ USE LMP 1-2 weeks ago. Social history: Disability. Never smoked. Family history noncontributory. CONSTITUTIONAL: Crying, nontoxic-appearing, chronically ill, young adult white female, awake and alert, no obvious distress HEENT: Atraumatic and normocephalic, PERRL, EOMI. Nares patent; no rhinorrhea; no nasal mucosal edema. Tympanic membranes clear. Oropharynx clear, tonsils 1 + moderate erythema; uvula midline; no exudate and moist pink mucosa. Airway patent. + cervical lymphadenopathy. No meningismus. Cardiovascular: Normal S1/S2, regular rate, regular rhythm, without murmur rub or gallop. PULMONARY/CHEST: Symmetrical and nontender. Clear to auscultation bilaterally. Good air movement. No accessory muscle usage. ABDOMEN: Soft, nondistended, nontender, no rebound, no guarding, no peritoneal signs, no masses or organomegaly. No CVAT. EXTREMITIES: 2/2 pulses, strength 5/5, no deformities, no clubbing, no cyanosis or edema. NEUROLOGICAL: no focal neuro deficits. GCS 15. SKIN: Warm and dry, no erythema. no rash. Good capillary refill. Source: Patient, Old records Exam Limitations: No limitations - Personal History LMP (Females 10-55): 8-14 Days Ago Current Tetanus Diphtheria and Acellular Pertussis (TDAP): Yes Tetanus Vaccine Date: 2010 - Medical/Surgical History Hx Asthma: No Hx Chronic Respiratory Disease: No Hx Diabetes: No Hx Cardiac Disease: No Hx Renal Disease: No Hx Cirrhosis: No Hx Alcoholism: No Hx HIV/AIDS: No Hx Splenectomy or Spleen Trauma: No Other PMH: HX: BREAST CA, MENINGITIS, ANXIETY, L SHOULDER SURGERY, BRACHIAL BYPASS SURGERY LEFT ARM, LEFT ARM FX AND SURGERY, MS, TBI,lac cervix w/IUD removal, APPY, MJ USE - Social History Smoking Status: Never smoked Constitutional: Initial Vital Signs Temperature (C) 37.4 C 06/21/18 19:40 Heart Rate 83 06/21/18 19:40 Respiratory Rate 16 06/21/18 19:40 Blood Pressure 132/91 H 06/21/18 19:40 O2 Sat (%) 97 06/21/18 19:40 O2 Delivery Mode Room Air Allergies/Adverse Reactions: codeine Allergy (Severe, Verified 06/19/18 07:04) Hives hydrocodone Allergy (Severe, Verified 06/19/18 07:04) Hives Sulfa (Sulfonamide Antibiotics) Allergy (Severe, Verified 06/19/18 07:04) Anaphylaxis vancomycin Allergy (Severe, Verified 06/19/18 07:04) Anaphylaxis Home Medications: Medication Instructions Recorded Cefuroxime Axetil [Ceftin (*)] 250 mg PO BID 10 Days tab 06/21/18 Medical Decision Making - Diagnostics Imaging Results: Imaging Impressions Neck CT 06/21/18 20:01 Impression: Findings consistent with pharyngitis are noted, with no focal abnormal fluid collections seen to suggest parapharyngeal abscess formation. Results called and discussed with Salma Law PA-C, on June 21, 2018 at 2141. ED Course/Re-evaluation: Vital signs reviewed and stable upon arrival. No systemic signs. IV access and laboratory studies ordered. CT soft tissue neck with contrast to evaluate for postpharyngeal abscess Given 2 L normal saline, IV Toradol 30 mg, IV Decadron 10 mg, IV Ativan 1 mg Patient is immunocompromised 2104: Labs reviewed. No leukocytosis, anemia, platelet dysfunction, sepsis, acute kidney injury, electrolyte imbalance 2139: Called By radiologist, Dr. Dedrick Bhatia, who advised there are no signs of postpharyngeal abscess. Does show pharyngeal mucosal erythema mild lymphadenopathy. No signs of meningitis. Low risk for meningitis. Will give IV Rocephin 2 g and prescription for Ceftin with ENT follow-up 2204: Reassessed patient who reports moderate relief of symptoms. Drinking fluids without difficulty. Given a prepack for Percocet and Zofran per request This patient was seen under the supervision of my secondary supervising physician. I evaluated care for this patient independently. Discussed this patient with Dr. Olson. Differential Diagnosis: Differential diagnosis includes but is not limited to meningitis, strep pharyngitis, tonsillitis, postpharyngeal abscess, viral syndrome, infectious mononucleosis. - Data Points Laboratory Results: Laboratory Results 06/21/18 20:45 06/21/18 20:45 06/21/18 06/21/18 06/21/18 20:45 20:45 20:45 WBC 9.01 10^3/uL 10^3/uL (3.80-9.50) RBC 4.36 10^6/uL 10^6/uL (4.18-5.33) Hgb 14.2 g/dL g/dL (12.6-16.3) Hct 40.9 % % (38.0-47.0) MCV 93.8 fL fL (81.5-99.8) MCH 32.6 pg pg (27.9-34.1) MCHC 34.7 g/dL g/dL (32.4-36.7) RDW 11.7 % % (11.5-15.2) Plt Count 278 10^3/uL 10^3/uL (150-400) MPV 9.8 fL fL (8.7-11.7) Neut % (Auto) 71.1 % % (39.3-74.2) Lymph % (Auto) 20.9 % % (15.0-45.0) [facility] % (Auto) 6.9 % % (4.5-13.0) Eos % (Auto) 0.2 % L % (0.6-7.6) Baso % (Auto) 0.6 % % (0.3-1.7) Nucleat RBC Rel Count 0.0 % % (0.0-0.2) Absolute Neuts (auto) 6.41 10^3/uL 10^3/uL (1.70-6.50) Absolute Lymphs (auto) 1.88 10^3/uL 10^3/uL (1.00-3.00) Absolute Monos (auto) 0.62 10^3/uL 10^3/uL (0.30-0.80) Absolute Eos (auto) 0.02 10^3/uL L 10^3/uL (0.03-0.40) Absolute Basos (auto) 0.05 10^3/uL 10^3/uL (0.02-0.10) Absolute Nucleated RBC 0.00 10^3/uL 10^3/uL (0-0.01) Immature Gran % 0.3 % % (0.0-1.1) Immature Gran # 0.03 10^3/uL 10^3/uL (0.00-0.10) VBG Lactic Acid Sodium 136 mEq/L mEq/L (135-145) Potassium 3.8 mEq/L mEq/L (3.3-5.0) Chloride 103 mEq/L mEq/L (97-110) Carbon Dioxide 22 mEq/l mEq/l (22-31) Anion Gap 11 mEq/L mEq/L (6-14) BUN 5 mg/dL L mg/dL (7-23) Creatinine 0.6 mg/dL mg/dL (0.6-1.0) Estimated GFR > 60 Glucose 78 mg/dL mg/dL (70-100) Calcium 9.2 mg/dL mg/dL (8.5-10.4) Total Bilirubin 0.5 mg/dL mg/dL (0.1-1.4) Conjugated Bilirubin 0.4 mg/dL mg/dL (0.0-0.5) Unconjugated Bilirubin 0.1 mg/dL mg/dL (0.0-1.1) AST 32 IU/L IU/L (14-46) ALT 27 IU/L IU/L (9-52) Alkaline Phosphatase 71 IU/L IU/L (38-126) Total Protein 7.3 g/dL g/dL (6.3-8.2) Albumin 4.2 g/dL g/dL (3.5-5.0) Beta HCG, Qual NEGATIVE 06/21/18 20:45 WBC RBC Hgb Hct MCV MCH MCHC RDW Plt Count MPV Neut % (Auto) Lymph % (Auto) [place] % (Auto) Eos % (Auto) Baso % (Auto) Nucleat RBC Rel Count Absolute Neuts (auto) Absolute Lymphs (auto) Absolute Monos (auto) Absolute Eos (auto) Absolute Basos (auto) Absolute Nucleated RBC Immature Gran % Immature Gran # VBG Lactic Acid 0.9 mmol/L mmol/L (0.7-2.1) Sodium Potassium Chloride Carbon Dioxide Anion Gap BUN Creatinine Estimated GFR Glucose Calcium Total Bilirubin Conjugated Bilirubin Unconjugated Bilirubin AST ALT Alkaline Phosphatase Total Protein Albumin Beta HCG, Qual Medications Given: Ceftriaxone Sodium 2 gm/ (Sodium Chloride) 50 mls @ 100 mls/hr IV EDNOW ONE PRN Reason: Protocol Stop: 06/21/18 22:11 Last Admin: 06/21/18 21:51 Dose: 50 mls Discontinued Medications Dexamethasone (Decadron Injection) 10 mg IVP EDNOW ONE Stop: 06/21/18 20:02 Last Admin: 06/21/18 20:52 Dose: 10 mg Sodium Chloride (Ns) 1,000 mls @ 0 mls/hr IV ONCE ONE; Wide Open PRN Reason: Protocol Stop: 06/21/18 20:02 Last Admin: 06/21/18 20:49 Dose: 1,000 mls Sodium Chloride (Ns) 1,000 mls @ 0 mls/hr IV ONCE ONE; Wide Open PRN Reason: Protocol Stop: 06/21/18 20:02 Last Admin: 06/21/18 20:50 Dose: 1,000 mls Ketorolac Tromethamine (Toradol) 30 mg IVP EDNOW ONE Stop: 06/21/18 20:02 Last Admin: 06/21/18 20:54 Dose: 30 mg Lorazepam (Ativan Injection) 1 mg IVP EDNOW ONE Stop: 06/21/18 20:02 Last Admin: 06/21/18 20:50 Dose: 1 mg Departure - Departure Disposition: Home, Routine, Self-Care Clinical Impression: Pharyngotonsillitis Condition: Good Instructions: Pharyngitis (ED), Tonsillitis (ED) Additional Instructions: Rest as much as possible until you are feeling better. Take Tylenol 650 mg every 4 hours and/or Ibuprofen 600 mg every 8 hours with food as needed for pain. Take Percocet every 6 hr as needed for severe breakthrough pain. Do not take Tylenol and Percocet at the same time. Consume a minimum of 8-10 glasses of water or electrolyte fluid replacement drinks that include Gatorade, Powerade, Pedialyte. Eat a bland diet for the next 48 hours and then slowly advance as tolerated. Take antibiotics as directed until complete. Do not skip a dose. Take Zofran 1 tab every 4 hours as needed for nausea, vomiting. Follow-up with ear nose and throat in 3-5 days if no improvement. Return to the ER immediately if you cannot swallow, have drooling, fevers, neck stiffness, cannot open your jaw, or any other symptoms that concern you. Referrals: [facility],. [Clinic] - As per Instructions Leo Knapp MD [Medical Doctor] - As per Instructions Prescriptions: Cefuroxime Axetil [Ceftin (*)] 250 mg PO BID 10 Days tab
[2018-06-21] MEDS ORDERED: NS 1,000 ML IV ONE ×2 (20:01)
[2018-06-21] MEDS ORDERED: KETOROLAC 30 MG/1 ML SDV IVP ONE (20:01)
[2018-06-21] MEDS ORDERED: LORazepam 2 MG/ML INJ IVP ONE (20:01)
[2018-06-21] MEDS ORDERED: DEXAMETHASONE 10 MG/ML VIAL IVP ONE (20:01)
[2018-06-21 20:57] LABS: PLATELET COUNT 278 10^3/uL (150-400)
[2018-06-21] MEDS ORDERED: ONDANSETRON 4MG PREPACK#2 BTL TAKEHOME ONE (21:45)
[2018-06-21] MEDS ORDERED: cefTRIAXone 1 GM/DEXTROSE 1 GM/50 ML BAG IV ONE (21:45)
[2018-06-21 21:52] VITALS: BP 126/82
[2018-06-21] MEDS: OXYCODONE/APAP 5/325MG PREPACK#4 BTL TAKEHOME ONE ×3 (22:20→22:50)
[2018-06-21] MEDS ORDERED: traMADol 50 MG TAB PO ONE (22:24)
[2018-06-21] MEDS ORDERED: OXYCODONE/APAP 5/325MG PREPACK#4 BTL TAKEHOME ONE (22:49)
== END 2018-06-21 22:59 | disposition home or self-care (01) ==
DX: J02.9 Acute pharyngitis, unspecified (principal); G35 Multiple sclerosis; E86.9 Volume depletion, unspecified
CPT/HCPCS: 96365; J0696; J1100; J1885; J2060